=== PATIENT | female | born 1950 | race African-American/Black ===

== ENCOUNTER 2024-11-30 14:15 | Emergency (ER) | payer OTHER ==
[~2024-11-30] VITALS: Ht 177.8 cm; Wt 80.3 kg
[2024-11-30 14:20] VITALS: BP 149/90; O2SAT 96
[2024-11-30 15:46] LABS: PLATELET COUNT (AUTO) 216 K/uL (179-408); RED BLOOD CELL COUNT(AUTO) 4.10 MIL/uL (3.63-4.92); RED CELL DISTRIBUTION WIDTH 13.5 % (12.3-17.7); WHITE BLOOD COUNT (AUTO) 5.5 K/uL (3.8-11.8)
[2024-11-30 15:55] LABS: CREATININE 0.9 mg/dL (0.6-1.3); SODIUM SERUM 142 mmol/L (136-145); UREA NITROGEN, BLOOD 18 mg/dL (7-18)
[2024-11-30 16:00] LABS: ASPARTATE AMINOTRANSFERASE 27 U/L (15-37); TOTAL PROTEIN, SERUM 7.8 g/dL (6.4-8.2)
[2024-11-30] MEDS ORDERED: HYDROCODONE/APAP 5-325MG TABLET ONE (16:25)
[2024-11-30] MEDS: HYDROCODONE/APAP 5-325MG TABLET PO ONE (17:07)
== END 2024-11-30 17:30 | disposition home or self-care (01) ==
LOC: ER 14:15
DX: R22.32 Localized swelling, mass and lump, left upper limb (principal); R07.9 Chest pain, unspecified; Z85.3 Personal history of malignant neoplasm of breast; Z88.8 Allergy status to other drugs, medicaments and biological substances; Z85.05 Personal history of malignant neoplasm of liver
CPT/HCPCS: 36415; 85025; A4606; A4663